=== PATIENT | male | born 1995 | race American Indian/Alaskan Native ===

== ENCOUNTER 2019-01-10 11:17 | Emergency (ER) | payer MEDICAID ==
--- NOTE | 2019-01-10 11:31 | Emergency Department Report ---
Blank Doc - Documentation Documentation: This is a 23-year-old male that presents with midsternum chest pain. Mother s tated is going through stressful times right now. Denies any SI/HI. Patient denies any radiation of pain. Stated has shallow breathing but denies any shortness of breathe. Denies any other complaints. This initial assessment diagnostic orders/clinical plan/treatment(s) is/are subject to change based on patient's health status, clinical progression and re- assessment by fellow clinical providers in the ED. Further treatment and workup at subsequent clinical providers discretion. Patient/guardians urged not to elope from ED s their condition may be serious if not clinically assessed and ma naged. Initial orders include: 1-Patient sent to [facility] for further evaluation and treatment 2- Labs 3- CXR 4- EKG
[2019-01-10 11:35] VITALS: BP 136/78
[2019-01-10] MEDS ORDERED: IBUPROFEN ONE (12:09)
[2019-01-10] MEDS ORDERED: IBUPROFEN PO ONE (12:10)
--- NOTE | 2019-01-10 12:21 | XRay Report ---
FINAL REPORT EXAM: XR CHEST ROUTINE 2V HISTORY: Chest Pain TECHNIQUE: Chest, two views PRIORS: None. FINDINGS: The heart size is normal. Mediastinal contours are normal. Pulmonary vasculature is not congested. The lungs are clear. There are no pleural effusion seen. There is no evidence of pneumothorax. IMPRESSION: There is no acute abnormality identified.
--- NOTE | 2019-01-10 13:12 | Emergency Department Report ---
Minor Respiratory - HPI Chief Complaint: Upper Respiratory Infection Stated Complaint: CHEST PAIN Time Seen by Provider: 01/10/19 11:25 Duration: 3 Days Minor Respiratory: Yes Able to Tolerate Fluids, No Rhinorrhea, No Sore Throat, No Ear Pain, No Cough, No Sick Contacts, No Hemoptysis, No Chest Pain, No Shortness of Breath, No Fever Other History: 23-year-old male with no medical history presents to ED complaining of some difficulty breathing after running up stairs earlier today. Patient states it feels like he has asthma but he does not. He denies chest pain, ED Review of Systems ROS: Stated complaint: CHEST PAIN Other details as noted in HPI Comment: All other systems reviewed and negative ED Past Medical Hx - Past Medical History Previous Medical History?: No - Surgical History Past Surgical History?: No - Social History Smoking Status: Current Every Day Smoker Substance Use Type: Prescribed - Medications Home Medications: Home Medications Medication Instructions Recorded Confirmed Last Taken Type Ibuprofen [Motrin] 800 mg PO Q8HR #30 tablet 01/10/19 Unknown Rx Minor Respiratory Exam - Exam General: Vital signs noted. No distress. Alert and acting appropriately. HEENT: Yes Moist Mucous Membranes, No Pharyngeal Erythema, No Pharyngeal Exudates, No Rhinorrhea, No Conjuctival Injection, No Frontal Tenderness, No Maxillary Tenderness Ear: Neither TM Bulge, Neither TM Erythema, Neither EAC Pain, Neither EAC Discharge Neck: Yes Supple, No Adenopathy Lungs: Yes Good Air Exchange, No Wheezes, No Ronchi, No Stridor, No Cough, No Labored Respirations, No Retractions, No Use of Accessory Muscles, No Other Abnormal Lung Sounds Heart: Yes Regular, No Murmur Abdomen: Yes Normal Bowel Sounds, No Tenderness, No Peritoneal Signs Skin: No Rash, No Edema Neurologic: Alert and oriented, no deficits. Musculoskeletal: Unremarkable. ED Course Vital Signs 01/10/19 01/10/19 11:33 12:14 Temperature 98.4 F Pulse Rate 104 H Respiratory 20 18 Rate Blood Pressure 136/78 O2 Sat by Pulse 100 Oximetry ED Medical Decision Making - Radiology Data Radiology results: report reviewed, image reviewed FINAL REPORT EXAM: XR CHEST ROUTINE 2V HISTORY: Chest Pain TECHNIQUE: Chest, two views PRIORS: None. FINDINGS: The heart size is normal. Mediastinal contours are normal. Pulmonary vasculature is not congested. The lungs are clear. There are no pleural effusion seen. There is no evidence of pneumothorax. IMPRESSION: There is no acute abnormality identified. Transcribed By: BEKAH Dictated By: ANNA WASHBURN MD Electronically Authenticated By: ANNA WASHBURN MD Signed Date/Time: 01/10/19 1221 - Medical Decision Making Patient was fused to have labwork done stating that he just needed something for his pain. Patient denies any medical condition or history of asthma. Patient is stable sound and speaking clear sentences able to make his own judgments. Discussed with patient that without labs that he is unable to do a proper assessment patient states he is a aware and states he just wants something for his pain Critical care attestation.: If time is entered above; I have spent that time in minutes in the direct care of this critically ill patient, excluding procedure time. ED Disposition Clinical Impression: Physically well but worried, Anxiety Disposition: DC-01 TO HOME OR SELFCARE Is pt being admited?: No Does the pt Need Aspirin: No Condition: Stable Instructions: Generalized Anxiety Disorder (ED) Additional Instructions: Make sure to follow up with the primary care physician as discussed. Take all your medications as you've been prescribed. If you have any worsening symptoms or develop new symptoms please return to ED immediately. Prescriptions: Ibuprofen [Motrin] 800 mg PO Q8HR #30 tablet [facility]Other] - 3-5 Days Forms: Work/School Release Form(ED) Time of Disposition: 13:19
== END 2019-01-10 13:55 | disposition home or self-care (01) ==
LOC: ED 11:17
DX: R06.02 Shortness of breath (principal); F41.9 Anxiety disorder, unspecified; F17.200 Nicotine dependence, unspecified, uncomplicated
CPT/HCPCS: 71046

== ENCOUNTER 2019-01-15 11:05 | Emergency (ER) | payer MEDICAID ==
[2019-01-15 11:12] VITALS: BP 134/76
--- NOTE | 2019-01-15 11:29 | Emergency Department Report ---
ED Shortness of Breath HPI - General Chief Complaint: Medical Clearance Stated Complaint: SOB Time Seen by Provider: 01/15/19 11:21 Source: patient Mode of arrival: Ambulatory Limitations: No Limitations - History of Present Illness Initial Comments: Patient is a 23-year-old male with a possible history of underlying psychiatric mental health disease who is presenting with shortness of breath the last 3 days. Patient was here on January 10 for the same complaints. Patient's chest x-ray at that time which was within normal limits. Patient refused any blood draw. Patient states he is here today because he wants to be checked for diabetes and cancer. Patient states he has no urinary frequency. He denies a cough cold congestions. Patient states he gets short of breath sometimes after walking up stairs. Patient has no chest pain at this time. On patient's last visit his mother stated that the patient's been under a great deal of stress lately and this likely is the cause of his shortness of breath. - Related Data Previous Rx's Medication Instructions Recorded Last Taken Type Ibuprofen [Motrin] 800 mg PO Q8HR #30 tablet 01/10/19 Unknown Rx Ibuprofen [Motrin] 600 mg PO Q8H PRN #20 tablet 01/15/19 Unknown Rx predniSONE [Deltasone] 20 mg PO QDAY #5 tab 01/15/19 Unknown Rx Allergies Allergy/AdvReac Type Severity Reaction Status Date / Time No Known Allergies Allergy Unverified 01/10/19 11:36 ED Review of Systems ROS: Stated complaint: SOB Other details as noted in HPI Comment: All other systems reviewed and negative ED Past Medical Hx - Past Medical History Previous Medical History?: No - Surgical History Past Surgical History?: No - Social History Smoking Status: Never Smoker Substance Use Type: None - Medications Home Medications: Home Medications Medication Instructions Recorded Confirmed Last Taken Type Ibuprofen [Motrin] 800 mg PO Q8HR #30 tablet 01/10/19 Unknown Rx Ibuprofen [Motrin] 600 mg PO Q8H PRN #20 tablet 01/15/19 Unknown Rx predniSONE [Deltasone] 20 mg PO QDAY #5 tab 01/15/19 Unknown Rx ED Physical Exam - General Limitations: No Limitations General appearance: alert, in no apparent distress - Head Head exam: Present: atraumatic, normocephalic - Eye Eye exam: Present: normal appearance - ENT ENT exam: Present: mucous membranes moist - Neck Neck exam: Present: normal inspection - Respiratory Respiratory exam: Present: normal lung sounds bilaterally. Absent: respiratory distress, wheezes, rales, rhonchi, stridor, chest wall tenderness - Cardiovascular Cardiovascular Exam: Present: regular rate, normal rhythm, systolic murmur (patient with a 2/6 systolic murmur). Absent: diastolic murmur, rubs, gallop - GI/Abdominal GI/Abdominal exam: Present: soft, normal bowel sounds. Absent: distended, tenderness, guarding, rebound, rigid - Rectal Rectal exam: Present: deferred - Extremities Exam Extremities exam: Present: normal inspection - Back Exam Back exam: Present: normal inspection - Neurological Exam Neurological exam: Present: alert, oriented X3 - Psychiatric Psychiatric exam: Present: normal affect, normal mood - Skin Skin exam: Present: warm, dry, intact, normal color. Absent: rash ED Course Vital Signs 01/15/19 11:11 Temperature 98.3 F Pulse Rate 101 H Respiratory 18 Rate Blood Pressure 134/76 O2 Sat by Pulse 99 Oximetry ED Medical Decision Making - EKG Data -: EKG Interpreted by Me - EKG Data 01/15/19 11:53 EKG shows sinus rhythm with a rate of 97 axis is leftward intervals are within normal limits. Patient has [address] elevation in V2 V3 and V4. There are no reciprocal changes present. There is some evidence of some J point notching in aVL with less than 1 mm elevation. This EKG is borderline for acute pericarditis. - Medical Decision Making Patient's presenting with some shortness of breath upon exertion for the last several days. Patient denies cough. Patient is denying any chest pain currently. Patient had a chest x-ray several days ago which was within normal limits. Patient's EKG is equivocal for pericarditis. Patient be started on prednisone and ibuprofen be discharged home with follow-up with cardiology. Critical care attestation.: If time is entered above; I have spent that time in minutes in the direct care of this critically ill patient, excluding procedure time. ED Disposition Clinical Impression: Pericarditis Qualifiers: Pericarditis type: infectious Infectious pericarditis etiology: viral Chronicity: unspecified Qualified Code(s): B33.23 - Viral pericarditis Disposition: - TO HOME OR SELFCARE Is pt being admited?: No Does the pt Need Aspirin: No Condition: Stable Instructions: Acute Pericarditis (ED) Referrals: CUONG INTERIANO MD [Staff Physician] - 3-5 Days GONZALEZ MERRITT [Primary Care Provider] - 3-5 Days Time of Disposition: 11:56
== END 2019-01-15 12:12 | disposition home or self-care (01) ==
LOC: ED 11:05
DX: B33.23 Viral pericarditis (principal)
CPT/HCPCS: 93005; 93010; 99282

== ENCOUNTER 2019-01-21 01:42 | Emergency (ER) | payer MEDICAID ==
--- NOTE | 2019-01-21 02:02 | Emergency Department Report ---
HPI - General Chief Complaint: Dyspnea/Respdistress Time Seen by Provider: 01/21/19 01:50 - [facility] HPI: Room 21 The patient is a 23-year-old male presenting with a chief complaint chest pain and difficulty breathing. The patient states this evening he began having substernal chest pain that was sharp in nature and he felt as though his breathing was "slowing down." Patient denies nausea/vomiting, cough or fever. The patient states this is why he called EMS. Patient is currently asymptomatic Location: Chest, lungs Duration: [See above] Quality: Sharp Severity: Moderate Modifying factors: [see above] Context: [see above] Mode of transportation: [not driving] ED Past Medical Hx - Past Medical History Previous Medical History?: Yes Additional medical history: Congenital Heart Defect - Surgical History Past Surgical History?: No - Family History Family history: no significant - Social History Smoking Status: Never Smoker Substance Use Type: None - Medications Home Medications: Home Medications Medication Instructions Recorded Confirmed Last Taken Type Ibuprofen [Motrin] 800 mg PO Q8HR #30 tablet 01/10/19 Unknown Rx Ibuprofen [Motrin] 600 mg PO Q8H PRN #20 tablet 01/15/19 Unknown Rx predniSONE [Deltasone] 20 mg PO QDAY #5 tab 01/15/19 Unknown Rx ED Review of Systems ROS: Stated complaint: SOB Other details as noted in HPI Constitutional: denies: fever Eyes: denies: eye pain ENT: denies: throat pain Respiratory: shortness of breath Cardiovascular: chest pain Endocrine: no symptoms reported Gastrointestinal: denies: abdominal pain Genitourinary: denies: dysuria Musculoskeletal: denies: back pain Neurological: denies: headache Physical Exam - Physical Exam Vital Signs: Vital Signs 01/21/19 01:49 Temperature 97.6 F Pulse Rate 84 Respiratory 16 Rate Blood Pressure 104/62 O2 Sat by Pulse 99 Oximetry Physical Exam: GENERAL: The patient is well-developed well-nourished male lying on stretcher not appearing to be in acute distress. [] HEENT: Normocephalic. Atraumatic. Extraocular motions are intact. Patient has moist mucous membranes. NECK: Supple. Trachea midline CHEST/LUNGS: Clear to auscultation. There is no respiratory distress noted. SPO2 98% on room air HEART/CARDIOVASCULAR: Regular. There is no tachycardia. There is no gallop rub or murmur. ABDOMEN: Abdomen is soft, nontender. Patient has normal bowel sounds. There is no abdominal distention. SKIN: There is no rash. There is no edema. There is no diaphoresis. NEURO: The patient is awake, alert, and oriented. The patient is cooperative. The patient has normal speech MUSCULOSKELETAL: There is no evidence of acute injury. ED Course Vital Signs 01/21/19 01:49 Temperature 97.6 F Pulse Rate 84 Respiratory 16 Rate Blood Pressure 104/62 O2 Sat by Pulse 99 Oximetry - Reevaluation(s) Reevaluation #1: 01/21/19 03:11 Patient remains asymptomatic ED Medical Decision Making - Lab Data Result diagrams: 01/21/19 02:11 01/21/19 02:11 Laboratory Tests 01/21/19 01/21/19 01/21/19 02:11 02:11 02:11 WBC 13.5 H RBC 4.44 Hgb 14.2 Hct 42.7 MCV 96 H MCH 32 MCHC 33 RDW 13.7 Plt Count 281 Lymph % (Auto) 24.1 Lyon % (Auto) 9.9 H Eos % (Auto) 0.6 Baso % (Auto) 0.4 Lymph # 3.3 Lyon # 1.3 H Eos # 0.1 Baso # 0.1 Seg Neutrophils % 65.0 Seg Neutrophils # 8.7 H D-Dimer < 135.00 Sodium 140 Potassium 3.5 L Chloride 101.0 Carbon Dioxide 28 Anion Gap 15 BUN 14 Creatinine 0.8 Estimated GFR > 60 BUN/Creatinine Ratio 18 Glucose 112 H Calcium 9.5 Total Creatine Kinase CK-MB (CK-2) CK-MB (CK-2) Rel Index Troponin T NT-Pro-B Natriuret Pep 01/21/19 02:11 WBC RBC Hgb Hct MCV MCH MCHC RDW Plt Count Lymph % (Auto) Lyon % (Auto) Eos % (Auto) Baso % (Auto) Lymph # Lyon # Eos # Baso # Seg Neutrophils % Seg Neutrophils # D-Dimer Sodium Potassium Chloride Carbon Dioxide Anion Gap BUN Creatinine Estimated GFR BUN/Creatinine Ratio Glucose Calcium Total Creatine Kinase 126 CK-MB (CK-2) < 1.0 CK-MB (CK-2) Rel Index 0.7 Troponin T < 0.010 NT-Pro-B Natriuret Pep < 5 - EKG Data -: EKG Interpreted by Ma EKG shows normal: sinus rhythm Rate: normal - EKG Data When compared to previous EKG there are: no significant change Interpretation: unchanged when compared t (01/15/2019) - Radiology Data Radiology results: report reviewed (chest x-ray), image reviewed (chest x-ray) interpreted by me: Chest x-ray-no focal infiltrates, no pneumothorax [facility] [address] [place] [address] XR ay Report Signed Patient: JOSELIN CREWS MR#: [id number] : 1995 Acct:[id number] Age/Sex: 23 / M ADM Date: 01/21/19 Loc: ED Attending Dr: Ordering Physician: ALMA VAIL MD Date of Service: 01/21/19 Procedure(s): XR chest routine 2V Accession Number(s): [id number] cc: ALMA VAIL MD Fluoro Time In Minutes: FINAL REPORT PROCEDURE: XR CHEST ROUTINE 2V TECHNIQUE: PA and lateral chest radiographs were obtained. CPT 22541 HISTORY: Shortness of breath COMPARISON: No prior studies are available for comparison. FINDINGS: Heart: Normal. Mediastinum/Vessels: Normal. Lungs/Pleural space: Normal. Bony thorax: No acute osseous abnormality. Other: IMPRESSION: There is no evidence of an acute cardiopulmonary process. Transcribed By: [facility] Dictated By: MERY JEAN MD Electronically Authenticated By: MERY JEAN MD Signed Date/Time: 01/21/19214 DD/ 3 TD/TT: 01/21/19213 - Differential Diagnosis costochondritis, PE, pneumothorax, pericarditis, GERD Critical care attestation.: If time is entered above; I have spent that time in minutes in the direct care of this critically ill patient, excluding procedure time. ED Disposition Clinical Impression: Atypical chest pain Disposition: DC-01 TO HOME OR SELFCARE Is pt being admited?: No Does the pt Need Aspirin: No Condition: Stable Instructions: Chest Pain (ED) Additional Instructions: Return to the emergency department immediately should you develop worsening symptoms, fever, inability to tolerate food or liquid or any other concerns. Referrals: [facility] MD CROW [Primary Care Provider] - 3-5 Days Time of Disposition: 03:11
--- NOTE | 2019-01-21 02:15 | XRay Report ---
FINAL REPORT PROCEDURE: XR CHEST ROUTINE 2V TECHNIQUE: PA and lateral chest radiographs were obtained. CPT 97456 HISTORY: Shortness of breath COMPARISON: No prior studies are available for comparison. FINDINGS: Heart: Normal. Mediastinum/Vessels: Normal. Lungs/Pleural space: Normal. Bony thorax: No acute osseous abnormality. Other: IMPRESSION: There is no evidence of an acute cardiopulmonary process.
[2019-01-21 02:29] LABS: Basophils # (Auto) 0.1 K/mm3 (0.0-0.1); Basophils % (Auto) 0.4 % (0.0-1.8); Eosinophils # (Auto) 0.1 K/mm3 (0.0-0.4); Eosinophils % (Auto) 0.6 % (0.0-4.3); Hematocrit 42.7 % (35.5-45.6); Hemoglobin 14.2 gm/dl (11.8-15.2); Lymphocytes # (Auto) 3.3 K/mm3 (1.2-5.4); Lymphocytes % (Auto) 24.1 % (13.4-35.0); Mean Corpuscular HGB Conc 33 % (32-34); Mean Corpuscular Volume 96 fl (84-94); Monocytes # (Auto) 1.3 K/mm3 (0.0-0.8); Monocytes % (Auto) 9.9 % (0.0-7.3); Platelet Count 281 K/mm3 (140-440); Red Blood Count 4.44 M/mm3 (3.65-5.03); Red Cell Distribution Width 13.7 % (13.2-15.2)
[2019-01-21 02:47] LABS: BUN/Creatinine Ratio 18; Blood Urea Nitrogen 14 mg/dL (9-20); Calcium 9.5 mg/dL (8.4-10.2); Hemolysis Index 8
[2019-01-21 03:10] LABS: Creatine Kinase MB < 1.0 ng/mL (0.0-4.0)
[2019-01-21 04:06] VITALS: BP 115/78
== END 2019-01-21 04:06 | disposition home or self-care (01) ==
LOC: ED 01:42
DX: R07.89 Other chest pain (principal)
CPT/HCPCS: 36415; 71046; 80048; 82550; 82553; 83880; 84484; 85025; 85379; 93005; 93010